=== PATIENT | female | born 1945 | race Caucasian/White ===

== ENCOUNTER 2016-11-25 06:07 | Outpatient (CLI) | payer MEDICARE, BC ==
[~2016-11-25] VITALS: Ht 157.5 cm; Wt 50.9 kg
[2016-11-25 07:07] VITALS: Ht 157.5 cm; Wt 50.9 kg
== END 2016-11-25 13:05 | disposition home or self-care (01) ==
LOC: D.OPS 06:07 → D.CT 08:00 → D.OPS 13:05
DX: K76.9 Liver disease, unspecified (principal); Z85.3 Personal history of malignant neoplasm of breast; C56.2 Malignant neoplasm of left ovary; C56.1 Malignant neoplasm of right ovary; C79.81 Secondary malignant neoplasm of breast; Z01.812 Encounter for preprocedural laboratory examination

== ENCOUNTER 2018-01-09 06:42 | Outpatient (CLI) | payer MEDICARE, BC ==
[~2018-01-09] VITALS: Ht 157.5 cm; Wt 48.2 kg
[2018-01-09 07:04] LABS: BASOPHILS 1.7 % (0-2); EOSINOPHILS 2.7 % (0-7); HEMOGLOBIN 12.1 g/dL (12-16); LYMPHOCYTES 37.7 % (15-50); MCH 30.7 pg (26.0-34.0); MCHC 32.7 g/dL (31.0-37.0); MCV 93.9 fL (80.0-100.0); MEAN PLATELET VOLUME 10.6 fL (7.4-10.4); MONOCYTES 9.4 % (2-11); NEUTROPHILS 48.5 % (40-80); PLATELET COUNT 208 10x3/uL (130-400); RBC 3.94 10x6/uL (4.00-5.40); RDW 16.8 % (11.5-14.5); WBC 4.1 10x3/uL (4.8-10.8)
[2018-01-09 07:17] LABS: ANION GAP 10.9 mmol/L (8-16); APTT 25.3 SECONDS (22.8-39.4); CALCIUM 9.4 mg/dL (8.5-10.1); CARBON DIOXIDE 29.6 mmol/L (21.0-32.0); CREATININE - SERUM 0.8 mg/dL (0.6-1.3); INR 0.93 (0.85-1.17); POTASSIUM - SERUM 3.5 mmol/L (3.5-5.1); PROTIME 12.1 SECONDS (11.6-15.0)
[2018-01-09 07:56] VITALS: Ht 157.5 cm; Wt 48.2 kg
== END 2018-01-09 09:11 | disposition home or self-care (01) ==
LOC: D.SP 06:42 → D.OPS 06:42 → D.CT 09:00 → D.SP 09:00 → D.OPS 09:11
PROVIDERS: Radiology Diagnostic Radiology
DX: C50.412 Malignant neoplasm of upper-outer quadrant of left female breast (principal); C56.9 Malignant neoplasm of unspecified ovary; Z01.810 Encounter for preprocedural cardiovascular examination; Z01.811 Encounter for preprocedural respiratory examination; Z01.812 Encounter for preprocedural laboratory examination; Z53.9 Procedure and treatment not carried out, unspecified reason

== ENCOUNTER 2019-03-06 06:40 | Outpatient (CLI) | payer MEDICARE, BC ==
[~2019-03-06] VITALS: Ht 157.5 cm; Wt 44.5 kg
[2019-03-06 07:06] LABS: BASOPHILS 0.8 % (0-2); EOSINOPHILS 1.5 % (0-7); HEMATOCRIT 36.3 % (36.0-48.0); HEMOGLOBIN 11.5 g/dL (12-16); IMMATURE GRANULOCYTES 0.2 % (0-5); LYMPHOCYTES 29.6 % (15-50); MCH 30.2 pg (26.0-34.0); MCHC 31.7 g/dL (31.0-37.0); MCV 95.3 fL (80.0-100.0); MEAN PLATELET VOLUME 10.3 fL (7.4-10.4); NEUTROPHILS 59.9 % (40-80); RBC 3.81 10x6/uL (4.00-5.40); RDW 14.4 % (11.5-14.5); WBC 4.8 10x3/uL (4.8-10.8)
[2019-03-06 07:08] LABS: PLATELET COUNT 367 10x3/uL (130-400)
[2019-03-06 07:17] LABS: CALC OSMOLALITY 284 mosm/kg (275-300); CALCIUM 9.2 mg/dL (8.5-10.1); CARBON DIOXIDE 26.8 mmol/L (21.0-32.0); CHLORIDE - SERUM 105 mmol/L (98-107); CREATININE - SERUM 0.6 mg/dL (0.6-1.3); GLUCOSE 104 mg/dL (74-106); POTASSIUM - SERUM 3.6 mmol/L (3.5-5.1); SODIUM 142 mmol/L (136-145); UREA NITROGEN 17 mg/dL (7-18); eGFR NON AFRICAN AMERICAN > 90 mL/min (90-120)
[2019-03-06 07:18] LABS: APTT 30.9 SECONDS (22.8-39.4); INR 1.01 (0.85-1.17); PROTIME 12.8 SECONDS (11.6-15.0)
[2019-03-06] MEDS ORDERED: ULTRAM50 MG PO (07:24)
[2019-03-06] MEDS ORDERED: ZOFRAN ODT4 MG/UDTAB PO (07:24)
[2019-03-06 07:29] VITALS: Ht 157.5 cm; Wt 44.5 kg
--- NOTE | 2019-03-06 09:49 | NUR ---
0945 IV DC'D WITH CATH INTACT. PT. PHONED HER RIDE. NO PROCEDURE PREFORMED.
--- NOTE | 2019-03-06 09:58 | NUR ---
0917 PT. HAS REACHED HER SPOUSE BY PHONE AND HE IS ON HIS WAY TO COME AND GET HER. DC INSTS GIVEN. PT. GETTING DRESSED.
--- NOTE | 2019-03-06 10:27 | NUR ---
1025 PT'S SPOUSE HERE, RELEASED AMB. WITH SPOUSE.
== END 2019-03-06 10:25 | disposition home or self-care (01) ==
LOC: D.SP 06:40 → D.RAD 09:00 → D.SP 10:25
PROVIDERS: General Practice; ATTEND Internal Medicine Medical Oncology
DX: C56.1 Malignant neoplasm of right ovary (principal); C50.412 Malignant neoplasm of upper-outer quadrant of left female breast